=== PATIENT | female | born 2005 | race Caucasian/White ===

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

== ENCOUNTER → 2024-09-30 | Outpatient (CLI) | payer OTHER ==
--- NOTE | 2024-09-30 14:38 | US ---
EXAMINATION TYPE: US pelvis complete transvag DATE OF EXAM: 09/30/2024 COMPARISON: US 05/03/2022 CLINICAL INDICATION: Female, 19 years old with history of N92.6 IRREGULAR MENSTRUATION, UNSPECIFIED; Polymenorrhea for 1 year TECHNIQUE: Transvaginal (TV) and Transabdominal (TA) . Transabdominal grayscale sonographic images of the pelvis were acquired. Transvaginal sonographic im ages were taken to better assess the following anatomy: Ovaries Doppler imaging: Not performed. FINDINGS: Date of LMP: 09/10/2024 EXAM MEASUREMENTS: Uterus: 7.4 x 3.2 x 4.9 cm Endometrial Stripe: 0.5 cm Right Ovary: 3.8 x 1.7 x 2.0 cm for a volume of 6.4 mL Left Ovary: 3.6 x 2.4 x 2.9 cm for a volume of 13.2 mL 1. Uterus: Anteverted and otherwise wnl 2. Endometrium: wnl 3. Right Ovary: wnl 4. Left Ovary: Dominant follicle vs cyst visualized 5. Bilateral Adnexa: Shower Screen Installer notes: Anechoic tubular structure in the right adnexa measuring 2.0 x 2.0 x 1.4 cm. Multi ple dilated ducts visualized, largest measuring 0.6 cm Shower Screen Installer notes: Dilated ducts visualized in the left adnexa, largest measuring 0.4 cm 6. Posterior cul-de-sac: wnl IMPRESSION: 1. The behavioral health rn indicates a tubular anechoic structure in the right adnexa measuring 2.0 x 2.0 x 1 .4 cm and bilateral adnexal duct-like or vascular structures. The exact etiology, whether this reflec ts hydrosalpinx or parauterine varices such as in the setting of pelvic congestion syndrome, is uncle ar. Consider further evaluation with female pelvic MRI. 2. The endometrial stripe is measured normal at 5 mm. [facility], , 09/30/2024 2:36 PM
== END | disposition home or self-care (01) ==
LOC: RADUSWWP 13:23
PROVIDERS: ATTEND Family Medicine
DX: N92.6 Irregular menstruation, unspecified (principal); N70.11 Chronic salpingitis
CPT/HCPCS: 76830; 76856